=== PATIENT | female | born 1975 | race Caucasian/White ===

== ENCOUNTER 2017-12-07 08:25 | Day surgery (SDC) | payer OTHER, SELFPAY ==
[2017-12-06 12:27] VITALS: BMI 21.4
[2017-12-07] VITALS (7 sets, daily range): BP systolic 107–134; BP diastolic 62–80; PULSE 66–80; RESP 14–16; TEMP 36.1–36.8; O2SAT 96–100; BMI 21.4
[2017-12-07] MEDS: LACTATED RINGERS 1,000 ML 42 ML IV (09:20)
--- NOTE | 2017-12-07 09:57 | PM.PREOP ---
Pre-operative Note Interval Note Pre-op Check: History & Physical Reviewed by Physician
[2017-12-07] MEDS: CEFAZOLIN 1 GM VIAL IV (10:24)
[2017-12-07] MEDS: BUPIVACAINE 0.5% (PF) 30 ML VIAL INJ (11:26)
[2017-12-07] MEDS: NEOMYCIN/POLYMYXIN/BACITRA UD OINT 1 EACH TOP (12:40)
--- NOTE | 2017-12-07 13:02 | P.OP_ITS ---
Operative Date/Time/Diagnoses - Date of procedure: 12/07/17 Time of procedure: 12:47 Pre-op diagnosis: Left foot hammertoe, metatarsalgia, left metatarsophalangeal joint sprain, and possible plantar plate injury Post-op diagnosis: same Procedure & Clinicians Procedure: Left 3rd proximal interphalangeal joint fusion, 3rd metatarsal osteotomy, capsular stabilization, plantar plate repair Same procedure as scheduled: Yes Indications: Painful drifting left 3rd toe. Conservative measures failed to alleviate her pain and she wished to have surgical intervention at this time. Surgeon: Neli Dueñas Click Yes if Unassisted: Yes Anesthesia Type: General Operative Notes Closure Type: primary Specimen(s): other Implants & Drains: Trilliant 2.0 x 14mm screw, 0.062 k-wire, 3-0 Ticron, 3-0, 4- 0 Vicryl, 3-0 Nylon Applied: implant(s) Estimated Blood Loss (mL): 20 Tourniquet time (min): 88 Procedure in detail: The patient was brought to the operating room and placed on the operative table in supine position, tourniquet placed about the left calf. After induction of general anesthesia the foot and ankle were prepped and draped in the usual aseptic manner. After checking for anesthesia and incision was made over the dorsal aspect of the 3rd toe into the proximal interphalangeal joint and metatarsophalangeal joint. The incision was deepened through subcutaneous tissues being careful to identify and retract all vital neural and vascular structures. All bleeders were cauterized and ligated as necessary. The extensor was transected at the proximal interphalangeal joint and reflected proximally and distally to allow for mobilization of the joint. A saw was used to resect the proximal phalangeal head and the base of the intermediate phalanx. Next dissection was carried down to the metatarsophalangeal joint where the joint was mobilized medially and laterally. I was unable to get the visualization as well as with the metatarsal location and with its length the decision was made to perform an osteotomy. A saw was used to resect the metatarsal head 3. And this was mobilized proximally and temporally stabilized with a guidewire. This allowed for better visualization of the plantar plate structure and medial and lateral capsule. It appeared to be a little thicker on the medial side than the lateral side although I did not see specifically a tear. It looked attenuated and redundant so the decision was made to align the toe and then medially add support with a stabilizing set of Ticron suturing. This was also met with some minor releasing of the lateral capsule. There is still some redundancy with abduction on the MTPJ so the pulling factor appeared to be the extensor. Decision was made to lengthen the extensor tendon. This was then stabilized with 4 0 Tycron and reinforced with 4 O Vicryl. Using the aid of fluoroscopy the guidewire was used and a 2.0 screw was placed across the osteotomy. The alignment was good and the parabola was deemed appropriate. The osteotomy appeared strong. Some redundant dorsal overhang of the bone was reduced with a rongeur. Good range of motion appeared at the 3rd MTPJ. The guidewire was removed. Next a 0.062 K-wire was placed in the base of the intermediate phalanx and drawn out the distal tip of the toe. This was then brought back into the proximal phalanx and attempts were made to place across the metatarsal head and osteotomy. I felt that using this technique it would be much more secure with still some drift on the toe. Once an appropriate location was found and did not interrupt the osteotomy of the metatarsal this was checked on C-arm to be deemed appropriate and alignment and redundant distal wire was trimmed after appropriate bending and capping. Final C-arm pictures were taken and the area was irrigated with copious amounts of normal sterile saline. Final capsulorrhaphy with Vicryl reinforced suturing performed medially at the MTPJ. There was also a slight bias of the soft tissue repair medially and extensor all was also repaired at the proximal interphalangeal joint. Subcutaneous closure with 4 O Vicryl and skin with 4 O nylon. The tip of the exiting wire was placed with triple antibiotic ointment and a dressing was placed on the foot consisting of Adaptic 4x4s conform and Coban. She was placed in a postsurgical boot and she also has issue that is available to her. Complications: none Condition: stable Disposition: PACU Plan for aftercare: Following a period of postoperative monitoring, the patient will be discharged home on written and oral postoperative instructions including keeping the dressing dry and intact, avoid ambulation to the foot, elevating the foot when seated at home, DVT prevention techniques have been reviewed. Her 1st set of x-rays will likely be around the 4th week and dependent upon her postoperative course we will consider wire removal anywhere between the 4th and 6th weeks. She continues to be nonweightbearing until the wire is removed.
--- NOTE | 2017-12-07 13:32 | SUR.PHASEII ---
brought back, dr kruse to bedside- spoke to both. both voiced an understanding of d/c instructions. p[t dressed when ready with assit of . surgical boot intact, dressing c/d/i. ortho/neuro unchanged.
--- NOTE | 2017-12-07 13:43 | SUR.PHASEII ---
pt left when ready and left in stable condition.
== END 2017-12-07 13:40 | disposition home or self-care (01) ==
PROVIDERS: Visit Provider Podiatrist
PROC: (CPT 28285; principal; 2017-12-07 09:45)
DX: M20.42 Other hammer toe(s) (acquired), left foot (principal); M77.42 Metatarsalgia, left foot; S99.922S Unspecified injury of left foot, sequela; S93.525A Sprain of metatarsophalangeal joint of left lesser toe(s), initial encounter
CPT/HCPCS: 27691; 28285; 28313; J0690; J1100; J1885; J2250; J2405; J2704; J3010

== ENCOUNTER 2018-05-18 08:19 | Day surgery (SDC) | payer OTHER, SELFPAY ==
[2018-05-10 15:51] VITALS: BMI 20.7
[2018-05-18] VITALS (12 sets, daily range): BP systolic 98–130; BP diastolic 41–89; PULSE 46–70; RESP 10–18; TEMP 36.3–37.1; O2SAT 93–100; BMI 20.7
--- NOTE | 2018-05-18 | PATH_ITS ---
[facility] Accession Number: [id number] . 01 Material submitted: . UTERUS AND BILATERAL FALLOPIAN TUBES . 02 Diagnosis: Uterus and Bilateral Fallopian Tubes, Laparoscopic supracervical hysterectomy with bilateral salpingectomy (Morcellated Specmien, Weight 37 grams): Endocervix with no diagnostic abnormality. Weakly proliferative and basalis endometrium; negative for glandular hyperplasia, cytologic atypia, and malignancy. Myometrium involved by adenomyosis. One subserosal leiomyoma (0.8 cm). Fallopian tubes #1 and #2 with benign paratubal cysts (1-7 mm) and no diagnostic abnormality. [facility]/05/22/2018 . 02 Electronically signed: . Amirah Pepper MD, Pathologist NPI- [id number] . 01 Gross description: . Received in formalin, labeled uterus, bilateral fallopian tubes, is a morcellated uterus (37 grams, 11.5 x 5.2 x 2.7 cm in aggregate) and two fimbriated fallopian tubes (tube #1: length-2.5 cm, diameter-0.4 cm; tube #2: length-3.3 cm, diameter-0.4 cm). The cervix and ovaries are absent. The specimen cannot be oriented and the endometrium and myometrium cannot be grossly identified. The parenchyma is ramey-white and unremarkable. The serosa is gunn-ramey smooth and shiny and contains a solid firm white whorled well-circumscribed homogeneous nodule (0.8 x 0.6 x 0.5 cm). The fallopian tubes have gunn-ramey smooth shiny serosa with multiple paratubal cysts (0.1 cm-0.7 cm) containing clear colorless fluid. The lumens are ramey and unremarkable. Section code: (A1-A4) parenchyma, utility sales representative; (A5) fallopian tube #1, utility sales representative serial sections; (A6) fimbria #1, bivalved, entirely submitted; (A7) fallopian tube #2, utility sales representative serial sections; (A8) fimbria #2, bivalved, entirely submitted. ([id number]) /MRV . 02 Pathologist provided ICD-10: N95.9 . 02 CPT . 168575 Specimen Comment: A duplicate report has been generated due to demographic updates. Performed at: 01 [facility] [address] [id number] MD Ramin Viera MD Phone: [phone] Performed at: 02 [facility] [id number] [place] [id number] MD Jaylin Garcia MD Phone: [phone]
[2018-05-18] MEDS: LACTATED RINGERS 1,000 ML 42 ML IV (08:54)
--- NOTE | 2018-05-18 09:41 | PM.PREOP ---
Pre-operative Note Interval Note Pre-op Check: Yes History & Physical Reviewed by Physician Changes: No
[2018-05-18] MEDS: CEFAZOLIN 2 GM/100 ML FROZ.PIGGY IV (09:45)
--- NOTE | 2018-05-18 10:23 | SUR.OPER ---
Lithotomy on padded OR bed. Devers Pad Positioner under torso. Head on pillow, arms padded and tucked at sides. Legs secured in padded yellow fins stirrups.
[2018-05-18] MEDS: ROPIVACAINE 0.2% PF 2 MG/ML 10ML AMP 20 ML INJ (10:32)
[2018-05-18] MEDS: BUPIVACAINE 0.5% W/ EPI (PF) VIAL 30 ML INJ (10:33)
[2018-05-18] MEDS: METOCLOPRAMIDE 10 MG/2 ML INJ IV (11:16)
[2018-05-18] MEDS: ONDANSETRON 4 MG/2 ML INJ IV (11:37)
[2018-05-18] MEDS: fentaNYL 100 MCG/2 ML INJ 50 MCG IV ×3 (11:42→13:20)
--- NOTE | 2018-05-18 12:13 | SUR.PHASEII ---
pt arrived to phase 2 her dressings are dry and intact. pt complains of mild cramping pain. pad is dry and intact.
[2018-05-18] MEDS: LACTATED RINGERS 1,000 ML 100 ML IV (13:08)
--- NOTE | 2018-05-18 13:12 | SUR.PHASEII ---
pt gave Katie Medrano RN report at 1200 and assumed care of her at present time pt complaining of pain in lower abdomen and it is 7 our of 10
[2018-05-18] MEDS: TRAMADOL 50 MG TABLET PO (13:32)
--- NOTE | 2018-05-18 14:29 | SUR.PHASEII ---
pt able to walk and void without difficulty.. Pt having some vaginal bleeding. But not a pad per hour. Pt has [place] pass faxed to [employer].
--- NOTE | 2018-05-18 15:28 | SUR.PHASEII ---
pt given d\c isntructions. pt able to void. IV removed and no problems noted. Pt d\mary with her . Pt had rosemary pad and stretch underwear given to pt. pt states she feels ready to go home.
--- NOTE | 2018-05-19 08:05 | P.OP_ITS ---
Operative Date/Time/Diagnoses Date of procedure: 05/18/18 Time of procedure: 11:15 Pre-op diagnosis: Pelvic pain Dysmenorrhea Labial hypertrophy Post-op diagnosis: same Procedure: Procedures Operation Date: 05/18/18 09:45 Actual Procedures Side Surgeon p Laparoscopic Supracervical Hysterectomy w/Bilat Salpingectomy and bilateral labial reduction Barbra Sanders MD Indications: Pelvic pain Dysmenorrhea Labial hypertrophy Surgeon: Barbra Sanders Anesthesia Type: General Operative Notes Findings: 7 week size anteverted uterus Normal tubes and ovaries Normal appendix Normal liver and gallbladder Closure Type: primary Specimen(s): uterus (And both tubes) Applied: catheter (Out at the end of the case) Estimated blood loss (mL): 10 Blood products transfused: none Procedure in detail: The patient was taken to the operating room where she was placed in the dorsal supine position. After adequate general endotracheal anesthesia was achieved, she was placed in the dorsal lithotomy position, and prepped and draped in the usual sterile fashion. A timeout was performed. A bivalve speculum was placed into the vagina and the anterior lip of the cervix grasped with a single-tooth tenaculum. The cervical os was sequentially dilated until the ZUMI uterine manipulator could pass easily into the endometrial cavity. The single-tooth tenaculum was removed from the anterior lip of the cervix, and the bivalve speculum was removed from the vagina. Attention was then turned to the abdomen where 6 mL of half percent Marcaine with epinephrine were injected in the umbilical fold. A 5 mm incision was made. The Verhees needle was placed into the peritoneal cavity, and its placement confirmed by aspiration and drop test. The Verhees needle was removed. A 5 mm trocar was placed without difficulty. 2 other incisions were made midway between the pubic symphysis and umbilicus after 5 mL of half percent Marcaine with epinephrine were injected. These were 5 mm incisions. Two 5 mm trochars were placed under direct visualization. The right tube was grasped with an atraumatic grasper. Using the plasma kinetic with settings of 40 W the mesosalpinx was cauterized and cut all the way down to the cornua of the uterus. The cornua of the uterus was then grasped with an atraumatic grasper. The utero-ovarian ligaments were cauterized and cut. The round ligament and broad ligament was cauterized and cut with plasma kinetic. Hemostasis was achieved. The bladder flap was created using the plasma kinetic with cautery and cut correction across. The uterine arteries on the right side were extensively cauterized with plasma kinetic. All of this was repeated on the left side. The remainder of the bladder flap was created using the plasma kinetic, and the bladder taken down off the lower uterine segment and cervix. Using the Endoloop, the cervix was amputated from the uterus 2 cm above the uterosacral ligaments, after the ZUMI uterine manipulator was removed from the uterus. There was a small amount of bleeding noted from the posterior edge of the cervix, and this was cauterized for hemostasis. A sponge stick was placed into the vagina. 6 mL of half percent Marcaine with epinephrine were injected above the pubic symphysis. A 12 mm trocar was placed. An Endobag was placed through the suprapubic incision and the uterus and tubes were placed into the Endobag. The Federico placed into the endobag. The uterus was hand morcellated in approximately 10 pieces. The Federico and Endobag was removed from the peritoneal cavity. The pelvis was copiously irrigated with warm normal saline. No bleeding was noted. 20 cc of 0.2% ropivacaine were placed over the pedicles. The instruments were removed from the abdomen. The CO2 was allowed to escape. The suprapubic incision was closed on the fascia with 0 Vicryl. All of the incisions were closed with 4-0 undyed Vicryl in a subcuticular fashion. The moistened sponge stick was removed from the vagina. Attention was turned to the external genitalia where the labia were marked with a marking pen for the area to be excised. 2 cm of depth were excised on the patient's right side and 1 cm on the left side. This was achieved using a # 10 Blade. The skin edges were closed using 3 0 chromic in simple interrupted sutures. Hemostasis was achieved. Sponge, lap, and instrument counts were correct x2. The patient tolerated the procedure well, and was taken to PACU in stable condition. Complications: none Post-operative Condition: stable Disposition: PACU Plan for aftercare: Home after recovery
== END 2018-05-18 15:15 | disposition home or self-care (01) ==
LOC: OR 08:19 → AC 08:24
PROVIDERS: Visit Provider Obstetrics & Gynecology
PROC: 0UT94ZL Resection of Uterus, Supracervical, Percutaneous Endoscopic Approach (ICD-10-PCS; CPT 58542; principal; 2018-05-18 09:45)
DX: N80.0 Endometriosis of uterus (principal); N94.4 Primary dysmenorrhea; N90.60 Unspecified hypertrophy of vulva; D25.2 Subserosal leiomyoma of uterus; N83.8 Other noninflammatory disorders of ovary, fallopian tube and broad ligament
CPT/HCPCS: 58542; 15839; J0690; J1100; J2405; J2704; J2765; J2795; J3010

== ENCOUNTER → 2021-02-09 12:28 | Outpatient (CLI) | payer OTHER, SELFPAY ==
[2021-02-09 14:45] LABS: Cancer Antigen 125 < 5.5 U/mL (0-35)
== END ==
PROVIDERS: Referring Provider Obstetrics & Gynecology; Visit Provider Obstetrics & Gynecology
DX: N83.8 Other noninflammatory disorders of ovary, fallopian tube and broad ligament (principal)
CPT/HCPCS: 36415; 86304

== ENCOUNTER → 2023-03-22 09:15 | Outpatient (CLI) | payer OTHER, SELFPAY ==
--- NOTE | 2023-03-22 09:16 | DI.US.S_ITS ---
PROCEDURE: US SOFT TISSUE HEAD AND NECK INDICATIONS: R ant cervical lymph node TECHNIQUE: Real-time scanning was performed of the neck region of interest, with image documentation. COMPARISON: None. FINDINGS: At the area of concern, there is normal muscular and fascial planes. Vascularity unremarkable. No evidence of mass lesion IMPRESSION: Unremarkable soft tissue ultrasound Approved by: Quintin Stiles M.D. on 03/22/2023 at 19:13
--- NOTE | 2023-03-22 09:16 | DI.MG.S_ITS ---
BILATERAL DIGITAL SCREENING MAMMOGRAM 3D/2D WITH CAD: 03/22/2023 CLINICAL: Routine screening. Family history of breast cancer. Comparison is made to exam dated: 06/19/2014 mammogram - [facility]. Both breasts are heterogeneously dense, which may obscure small masses (category c / 51-75% glandular tissue). Current study was also evaluated with a Computer Aided Detection (CAD) system. No significant masses, calcifications, or other findings are seen in either breast. There has been no significant interval change. IMPRESSION: NEGATIVE There is no mammographic evidence of malignancy. A 1 year screening mammogram is recommended. Based on Tyrer-Cuzick model (a risk assessment model), the patient's lifetime risk is 20.2% and her 10 year risk is 5.0%. If a patient has an elevated risk, a more comprehensive evaluation should be considered and/or a referral to a genetic counselor. The [place] [employer], [place] [employer], and NCCN Guidelines advise the consideration of Breast MRI as an adjunct to screening mammography in patients whose Lifetime risk to develop breast cancer is 20% or higher. This exam was interpreted at Station ID: [id number]. NOTE: For mammograms, a report in lay terms will be sent to the patient. Approximately 15% of breast malignancies will not be visualized mammographically. In the management of a palpable breast mass, a negative mammogram must not discourage biopsy of a clinically suspicious lesion. Electronically Signed By: Yanni pascual/tammie:03/22/2023 12:50:20 letter sent: Normal Exam ACR BI-RADS Category 1: Negative [id number]
== END ==
PROVIDERS: PCP Family Medicine; Referring Provider Family Medicine; Visit Provider Family Medicine
DX: Z12.31 Encounter for screening mammogram for malignant neoplasm of breast (principal); Z80.3 Family history of malignant neoplasm of breast; R59.0 Localized enlarged lymph nodes
CPT/HCPCS: 76536; 77063; 77067

== ENCOUNTER → 2023-03-29 09:30 | Outpatient (CLI) | payer OTHER, SELFPAY ==
[2023-03-29 21:08] LABS: Add Manual Diff / Slide Review NO; Basophils Absolute Auto 0 /uL (0-100); Basophils Percent Auto 0.9 % (0-2); Eosinophils Absolute Auto 100 /uL (0-450); Eosinophils Percent Auto 2.6 % (2-4); Hematocrit 38.6 % (36-46); Hemoglobin 13.2 g/dL (12.0-16.0); Lymphocytes Absolute Auto 800 /uL (1100-4500); Lymphocytes Percent Auto 22.6 % (25-40); Mean Corpuscular HGB Conc 34.1 % (30-36); Monocytes Absolute Auto 300 /uL (0-900); Monocytes Percent Auto 7.9 % (3-14); Neutrophils Absolute Auto 2300 /uL (1500-7000); Platelet Count 219 X10^3/uL (150-400); Red Blood Cell Count 4.39 X10^6/uL (4.0-5.2); Red Cell Distribution Width 12.8 % (11.6-14.8); White Blood Cell Count 3.5 X10^3/uL (4.5-11.0)
[2023-03-29 21:19] LABS: Alanine Aminotransferase 16 IU/L (<35); Albumin 3.8 g/dL (3.5-5.0); Albumin Globulin Ratio 1.5 (1.0-2.8); Alkaline Phosphatase 62 U/L (38-126); Aspartate Aminotransferase 22 IU/L (14-36); BUN Creatinine Ratio 18.2 (6-22); Bilirubin Total 1.4 mg/dL (0.2-1.3); Blood Urea Nitrogen 16 mg/dL (7-17); Calcium 9.2 mg/dL (8.4-10.2); Carbon Dioxide 28 mmol/L (22-32); Chloride 103 mmol/L (98-107); Cholesterol 226 mg/dL (140-199); Estimated Glomerular Filt Rate > 60 mL/min (>60); Globulin 2.6 g/dL (1.7-4.1); Glucose 88 mg/dL (70-100); HEMOLYSIS < 15 (0-50); Potassium 4.4 mmol/L (3.4-5.1); Sodium 134 mmol/L (137-145); Total Protein 6.4 g/dL (6.3-8.2); Triglycerides 50 mg/dL (35-150)
[2023-03-29 21:29] LABS: HDL Cholesterol 130 mg/dL (40-60); LDL Cholesterol Calculated 86 mg/dL (<100)
[2023-03-29 21:43] LABS: TSH w/ Reflex to FT4 1.36 uIU/mL (0.47-4.68)
== END ==
PROVIDERS: PCP Family Medicine; Visit Provider Family Medicine
DX: R03.0 Elevated blood-pressure reading, without diagnosis of hypertension (principal); R59.9 Enlarged lymph nodes, unspecified; R21 Rash and other nonspecific skin eruption; Z13.6 Encounter for screening for cardiovascular disorders
CPT/HCPCS: 80053; 80061; 84443; 85025